=== PATIENT | female | born 1980 | race Caucasian/White ===

== ENCOUNTER 2021-10-31 18:18 | Emergency (ER) | payer OTHER, SELFPAY ==
--- NOTE | 2021-10-31 18:23 | ED.GENADULT ---
HPI - General Adult General Chief complaint: Nausea/Vomiting/Diarrhea Stated complaint: DIARRHEA/CHILLS Time Seen by Provider: 10/31/21 18:39 Source: patient and RN notes reviewed Mode of arrival: ambulatory Limitations: no limitations History of Present Illness HPI narrative: 41-year-old female presents with concern for 6 diarrhea stools and chills that started overnight. She reports exposure to influenza A at work. She reports she has recently had a gastric sleeve. She denies vomiting, sweats, fever, upper respiratory symptoms. She has been vaccinated for Covid. complaint: Diarrhea Related Data Home Medications Medication Instructions Recorded Confirmed bupropion HCl 10/31/21 lisinopril 10/31/21 metoprolol succinate 10/31/21 Allergies Allergy/AdvReac Type Severity Reaction Status Date / Time No Known Allergies Allergy Verified 10/31/21 18:29 Review of Systems Review of Systems: CONSTITUTIONAL: Denies malaise, sweats, or fever. Reports chills EYES: Denies visual changes, redness, or discharge. ENT: Denies rhinorrhea, congestion, sinus pain, otalgia or sore throat. CARDIOVASCULAR: Denies chest pain, palpitations, or edema. RESPIRATORY: Denies cough or dyspnea. GASTROINTESTINAL: Denies abdominal pain, nausea, vomiting,. Reports diarrhea GENITOURINARY: Denies dysuria or hematuria. SKIN: Denies rash or itching. MUSCULOSKELETAL: Denies back pain, joint pain, or myalgia. NEUROLOGIC: Denies numbness, weakness, or headache. PSYCHIATRIC: Denies anxiety or depression. All systems reviewed & are unremarkable except as noted in HPI and below PMFSH Comments At time of signature, agree with nursing past medical, surgical, social and family history. There is no relevant family history pertinent to the presenting complaint Exam Narrative: GENERAL: Well-appearing, well-nourished, and in no acute distress. HEAD: Normocephalic, atraumatic. EYES: PERRLA, sclera clear ENT: Nares clear. Mucous membranes moist NECK: Supple. CHEST: No respiratory distress. Clear to auscultation. No bony deformities, no asymmetry. Speaks in full sentences. HEART: Regular rate and rhythm. ABDOMEN: Soft, nontender, obese, normal active bowel sounds, no palpable masses. EXTREMITIES: Normal range of motion. SKIN: Warm, dry, no visible rash. NEURO: Alert and oriented x3. PSYCH: Normal mood and affect Course Course Emergency Course: Patient is aware of diagnosis, understands and agrees to treatment plan. Anticipatory guidance given. Patient agrees to follow-up as directed and is aware of reasons to seek care at the emergency department. Portions of this record may have been created with voice recognition software Vital Signs Vital signs: Reviewed. Medical Decision Making MDM Narrative Medical decision making narrative: Differential diagnosis considered: Yap virus, strep pharyngitis, allergic rhinitis, upper respiratory tract infection, sinusitis, rhinosinusitis, nasopharyngitis. viral pharyngitis, otitis media, otitis externa, pneumonia, bronchitis, viral cough syndrome, viral syndrome, and influenza. Exam findings show no acute concerns or changes; patient is non-toxic appearing and is in no distress. Patient is appropriate for outpatient treatment and follow-up. Lab Data Lab results reviewed: Yes I reviewed the patient's lab results. Critical Care Time Critical Care Time Critical Care Time: No Discharge Plan Discharge Clinical Impression: Diarrhea Qualifiers: Diarrhea type: unspecified type Qualified Code(s): R19.7 - Diarrhea, unspecified Patient Disposition: Home, Self-Care Condition: Stable Instructions: Acute Diarrhea (ED) Additional Instructions: Stay hydrated. Take small sips of fluid containing electrolytes frequently. You should go to the hospital if you experience return of persistent diarrhea that does not resolve and does not allow you to tolerate any food or fluids, persistent fevers for greater than 2-3
[2021-10-31 18:25] VITALS: BP 138/96; PULSE 93; RESP 16; TEMP 36.4; O2SAT 99
== END 2021-10-31 18:53 | disposition home or self-care (01) ==
PROVIDERS: Emergency Provider Nurse Practitioner; PCP Nurse Practitioner Family
DX: R19.7 Diarrhea, unspecified (principal)
CPT/HCPCS: 87804; 99213; G0463

== ENCOUNTER → 2022-01-10 13:31 | Outpatient (CLI) | payer OTHER, SELFPAY ==
--- NOTE | ~2022-01-10 | US_ITS ---
US axilla RT 01/10/2022 13:58 Indication: Palpable right axillary lump which is cut bigger over the past month. Patient has been on antibiotics for 2 weeks. Procedure: High-resolution Limited ultrasound of the right axilla in the area of palpable concern Comparison: No prior studies for comparison. Findings: In the area of palpable concern there is a superficially located oval hypoechoic mass measu ring 2.4 x 1.6 x 0.9 cm with parallel configuration, mixed posterior attenuation and peripheral vascu larity. No other masses are identified. Impression: 1: Irregular shaped hypoechoic mass located superficially in the area of palpable concern measuring u p to 2.4 cm maximum dimension. Considerations include complicated sebaceous cyst, abscess and less li silvina malignancy. Recommend initial evaluation with ultrasound-guided aspiration. If aspiration of flu id not possible, core biopsy recommended using ultrasound guidance. BI-RADS CATEGORY 4-SUSPICIOUS ABNORMALITY RECOMMENDATION: Ultrasound-guided aspiration/biopsy recommended. Reviewed, dictated and finalized at location A. TO CHIP SORTER Impression: 1: Irregular shaped hypoechoic mass located superficially in the area of palpab le concern measuring up to 2.4 cm maximum dimension. Considerations include com plicated sebaceous cyst, abscess and less likely malignancy. Recommend initial evaluation with ultrasound-guided aspiration. If aspiration of fluid not possib le, core biopsy recommended using ultrasound guidance. BI-RADS CATEGORY 4-SUSPICIOUS ABNORMALITY RECOMMENDATION: Ultrasound-guided aspiration/biopsy recommended.
== END ==
DX: D48.1 Neoplasm of uncertain behavior of connective and other soft tissue (principal)
CPT/HCPCS: 76882

== ENCOUNTER → 2022-04-04 12:47 | Outpatient (CLI) | payer OTHER, SELFPAY ==
--- NOTE | ~2022-04-04 | XR_ITS ---
EXAMINATION: XR hip RT 2V w AP pelvis DATE: 04/04/2022 13:19 INDICATION: Right hip pain TECHNIQUE: Anteroposterior view of the pelvis and anteroposterior and frog-leg lateral views of the r ight hip were obtained. COMPARISON: None. FINDINGS: Alignment is normal. No fracture or suspected avascular necrosis. Mild bilateral hip and sacroiliac o steoarthritis. Bone graft harvest site along the left iliac crest reportedly for prior childhood trau ma surgery. Soft tissues are unremarkable. IMPRESSION: 1. Mild bilateral hip and sacroiliac osteoarthritis. Reviewed, dictated and finalized at location B.
--- NOTE | ~2022-04-04 | MM_ITS ---
EXAMINATION: MM screening carlene BI w kaila HISTORY: Screening mammogram TECHNIQUE: Craniocaudal and mediolateral oblique 3-D tomosynthesis images were obtained and synthetic 2-D images were generated. CAD analysis was submitted and interpreted. COMPARISON: No prior mammogram is available for comparison at this institution. BREAST PARENCHYMAL COMPOSITION: The breasts are heterogeneously dense, which may obscure small masses . FINDINGS: Approximately 1.3 cm irregular circumscribed mass is noted in the mid left breast at mid de pth; diagnostic left mammogram and left breast ultrasound examination are recommended. Possible partially circumscribed mass is noted further laterally in the mid outer left breast. Altern atively, this may be dense fibroglandular stroma. Possible mass in posterior upper outer right breast. Diagnostic right mammogram and right breast ult rasound examination are recommended. IMPRESSION: 1. Bilateral breast masses are suggested 2. Bilateral diagnostic mammography and bilateral breast ultrasound examination are recommended BI-RADS Category 0: Incomplete: Needs additional imaging evaluation. Reviewed, dictated and finalized at location A.
== END ==
DX: Z12.31 Encounter for screening mammogram for malignant neoplasm of breast (principal); M25.551 Pain in right hip; M16.0 Bilateral primary osteoarthritis of hip; R92.8 Other abnormal and inconclusive findings on diagnostic imaging of breast
CPT/HCPCS: 73502; 77063; 77067

== ENCOUNTER → 2022-04-17 08:10 | Outpatient (CLI) | payer OTHER, SELFPAY ==
--- NOTE | ~2022-04-17 | MMUS_ITS ---
EXAMINATION: MM diagnostic carlene BI w kaila, US breast BI complete HISTORY: Bilateral breast masses TECHNIQUE: Additional 3-D tomosynthesis images of the breasts were performed and synthetic 2-D images were generated. CAD analysis was submitted and interpreted. High resolution bilateral complete breas t ultrasound was performed. COMPARISON: 04/04/2022 BREAST PARENCHYMAL COMPOSITION: The breasts are heterogenously dense, which may obscure small masses FINDINGS: MAMMOGRAPHIC FINDINGS: There are bilateral breast masses involving the upper outer quadrant of both breasts. There are no hagan spicious calcifications or architectural distortion. ULTRASOUND: Complete bilateral US of all 4 quadrants of the breasts and retroareolar region was reviewed. Right breast: At 7:00, 6 cm from the nipple there is a 4 mm cyst. At 10:00, 5 cm from the nipple ther e is a 7 mm cyst. This corresponds to the mammographic finding. Left breast: At 12:00, 1 cm from the nipple there is a 6 mm cyst. At 1:00 near the areola there is a 6 mm cyst. At 4:00, 3 cm from the nipple there is a 6 mm cyst. At 7:00, 5 cm from the nipple there is a 4 mm cyst. IMPRESSION: 1. No evidence for malignancy in either breast. Benign bilateral breast cysts. 2. Routine yearly screening mammogram and regular clinical breast examination are recommended. BI-RADS Category 2: Benign finding(s). Reviewed, dictated and finalized at location A. IMPRESSION: 1. No evidence for malignancy in either breast. Benign bilateral breast cysts. 2. Routine yearly screening mammogram and regular clinical breast examination a re recommended. BI-RADS Category 2: Benign finding(s).
== END ==
DX: R92.8 Other abnormal and inconclusive findings on diagnostic imaging of breast (principal)
CPT/HCPCS: 76641; 77062; 77066; G0279

== ENCOUNTER 2022-10-26 10:44 | Emergency (ER) | payer OTHER, SELFPAY ==
[2022-10-26 11:09] VITALS: BP 131/80; PULSE 78; RESP 18; TEMP 36.3; O2SAT 100
[2022-10-26 11:12] VITALS: BP 131/80; PULSE 78; RESP 18; TEMP 36.3; O2SAT 100
--- NOTE | 2022-10-26 11:45 | ED.GENADULT ---
HPI - General Adult General Chief complaint: Upper Respiratory Infection Stated complaint: clammy, fatigue, cov exposure Time Seen by Provider: 10/26/22 11:46 Source: patient, RN notes reviewed and old records reviewed Mode of arrival: ambulatory Limitations: no limitations History of Present Illness HPI narrative: 42-year-old female who presents to [facility] with complaints feeling clammy, extreme fatigue,sinus drainage and headache for a few days, has had positive exposures recently to COVID and Flu. 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 Patient is also suppose to have surgery for hysterectomy on the 20 of November for abnormal vaginal bleeding and thinks she may just have low hemoglobin which is making her feel bad. Patient reports that she had iron infusions in September, plans to contact MD for labs. MD complaint: fatigue, clammy feeling, covid exposure. Severity scale (1-10): 3 Related Data Home Medications Medication Instructions Recorded Confirmed alprazolam 0.5 mg tablet 0.5 mg PO DAILY 10/26/22 10/26/22 apixaban 5 mg tablet (Eliquis) 5 mg PO DAILY 10/26/22 10/26/22 bupropion HCl 150 mg 24 hr tablet, 150 mg PO DAILY 10/26/22 10/26/22 extended release ezetimibe 10 mg tablet 10 mg PO DAILY 10/26/22 10/26/22 levothyroxine 25 mcg tablet 25 mcg PO DAILY 10/26/22 10/26/22 lisinopril 10 mg tablet 10 mg PO DAILY 10/26/22 10/26/22 norgestimate 0.25 mg-ethinyl 1 tablet PO DAILY 10/26/22 10/26/22 estradiol 35 mcg tablet (Estarylla) nystatin 100,000 unit/gram topical 1 applic topical DIRECTED 10/26/22 10/26/22 powder (Nystop) Allergies Allergy/AdvReac Type Severity Reaction Status Date / Time No Known Allergies Allergy Verified 10/26/22 11:11 Review of Systems Review of Systems: CONSTITUTIONAL: Denies fever, chills, or sweats. EYES: Denies visual changes, redness, or discharge. ENT: Reports rhinorrhea, congestion,no sore throat, or otalgia. CARDIOVASCULAR: Denies chest pain, palpitations, or edema. RESPIRATORY: Denies cough or dyspnea. GASTROINTESTINAL: Denies abdominal pain, nausea, vomiting, or diarrhea. GENITOURINARY: Denies dysuria or hematuria. SKIN: Denies rash or itching. MUSCULOSKELETAL: Denies back pain, joint pain, or myalgia. NEUROLOGIC: Reports headache,no numbness, positive for generalized weakness and fatigue PSYCHIATRIC: Positive for history of anxiety or depression. All systems reviewed & are unremarkable except as noted in HPI and below PMFSH Past Medical History Medical History (Updated 10/27/22 @ 09:08 by Shazia Chavarria NP) Anemia Anxiety and depression Hypertension Surgical History Surgical History (Updated 10/27/22 @ 08:52 by Shazia Chavarria NP) H/O gastric sleeve Social History Social History (Updated 10/27/22 @ 08:53 by Shazia Chavarria NP) Smoking status: Never smoker Alcohol intake: unknown Substance use: never Gender identity (if verbalized by the patient): Female Comments At time of signature, agree with nursing past medical, surgical, social and family history. There is no relevant family history pertinent to the presenting complaint Exam Narrative: GENERAL: Well-appearing, well-nourished, and in no acute distress. HEAD: Normocephalic, atraumatic. EYES: PERRLA and EOMI. ENT: Nares clear, clear rhinorrhea or epistaxis. Mucous membranes moist.TM's normal with good light reflex, throat pink with no lesions or exudates or swelling NECK: Supple. no lymphadenopathy CHEST: Clear to auscultation. No respiratory distress. HEART: Regular rate and rhythm. No murmur heard. Normal peripheral pulses. ABDOMEN: Soft, nontender, nondistended, normal active bowel sounds. EXTREMITIES: Normal range of motion. No edema. SKIN: Warm, dry, no rash. NEURO: No focal deficits. Alert and oriented x3. Course Course Emergency Course: Patient is aware of diagnosis, understands and agrees t
== END 2022-10-26 11:58 | disposition home or self-care (01) ==
PROVIDERS: Emergency Provider Registered Nurse; PCP Nurse Practitioner Family
DX: B34.9 Viral infection, unspecified (principal); Z20.822 Contact with and (suspected) exposure to COVID-19; I10 Essential (primary) hypertension; F41.9 Anxiety disorder, unspecified; F32.A Depression, unspecified
CPT/HCPCS: 87426; 87804; 99213; C9803; G0463

== ENCOUNTER 2023-02-19 15:26 | Emergency (ER) | payer OTHER, SELFPAY ==
[2023-02-19 15:36] VITALS: BP 137/94; PULSE 72; RESP 16; TEMP 36.3; O2SAT 100
--- NOTE | 2023-02-19 16:08 | ED.URI ---
HPI - URI/Sore Throat General Chief Complaint: Upper Respiratory Infection Stated Complaint: EARACHE/SINUS CONGESTION Time Seen by Provider: 02/19/23 16:09 Source: patient and RN notes reviewed Mode of arrival: ambulatory Limitations: no limitations History of Present Illness HPI Narrative: 43-year-old female presents with concern for sinus congestion and earache, headache that started yesterday. Reports she did a COVID test at home that was negative. 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 She denies fever, aches, chills sweats MD elicited complaint: cough and sore throat Related Data Home Medications Medication Instructions Recorded Confirmed alprazolam 0.5 mg tablet 0.5 mg PO DAILY 10/26/22 02/19/23 bupropion HCl 150 mg 24 hr tablet, 150 mg PO DAILY 10/26/22 02/19/23 extended release ezetimibe 10 mg tablet 10 mg PO DAILY 10/26/22 02/19/23 levothyroxine 25 mcg tablet 25 mcg PO DAILY 10/26/22 02/19/23 lisinopril 10 mg tablet 10 mg PO DAILY 10/26/22 02/19/23 norgestimate 0.25 mg-ethinyl 1 tablet PO DAILY 10/26/22 02/19/23 estradiol 35 mcg tablet (Estarylla) Allergies Allergy/AdvReac Type Severity Reaction Status Date / Time No Known Allergies Allergy Verified 02/19/23 15:31 Review of Systems Review of Systems: CONSTITUTIONAL: Denies malaise, chills, sweats, or fever. EYES: Denies visual changes, redness, or discharge. ENT: Reports rhinorrhea, congestion, otalgia and sore throat. CARDIOVASCULAR: Denies chest pain, palpitations, or edema. RESPIRATORY: Denies cough. Denies dyspnea. GASTROINTESTINAL: Denies abdominal pain, nausea, vomiting, diarrhea SKIN: Denies rash or itching. MUSCULOSKELETAL: Denies myalgia. NEUROLOGIC: Reports headache. All systems reviewed & are unremarkable except as noted in HPI and below PMFSH Past Medical History Medical History (Updated 02/19/23 @ 16:32 by Ninfa Dickson NP) Anemia Anxiety and depression Hypertension Surgical History Surgical History (Updated 10/27/22 @ 08:52 by Shazia Chavarria NP) H/O gastric sleeve Social History Social History (Updated 10/27/22 @ 08:53 by Shazia Chavarria NP) Smoking status: Never smoker Alcohol intake: unknown Substance use: never Gender identity (if verbalized by the patient): Female Comments At time of signature, agree with nursing past medical, surgical, social and family history. There is no relevant family history pertinent to the presenting complaint Exam Narrative: GENERAL: Well-appearing, well-nourished, and in no acute distress. HEAD: Normocephalic EYES: PERRLA, conjunctivae clear ENT: Nares clear, turbinates edematous and erythematous, clear discharge. Mucous membranes moist. TM pearly reynoso with dull light reflex bilaterally; no tragal tenderness. Oropharynx not erythematous without lesions. Tonsils not enlarged and without exudate, no drooling, no hoarseness, no trismus, uvula midline. NECK: Supple. No lymphadenopathy CHEST: Clear to auscultation, breath sounds equal. No wheezing, rhonchi, rales, or stridor. No respiratory distress, speaks in full sentences. HEART: Regular rate and rhythm. No murmur heard. SKIN: Warm, dry, no rash. NEURO: Alert and oriented x3. PSYCH: Normal mood and affect Course Course Emergency Course: Patient is aware of diagnosis, understands and agrees to treatment plan. Anticipatory guidance given. Patient agrees to follow-up as directed and is aware of reasons to seek care at the emergency department. Portions of this record may have been created with voice recognition software Level of Care: Express Care Visit Vital Signs Vital signs: Vital Signs Temperature 97.4 F L 02/19/23 15:36 Pulse Rate 72 02/19/23 15:36 Respiratory Rate 16 02/19/23 15:36 Blood Pressure 137/94 H 02/19/23 15:36 Pulse Oximetry 100 02/19/23 15:36 Temperature 97.4 F L 02/19/23 15:36 Pulse Rate 72 02/19/23 15:36 Respiratory Rate 16 02/19/23 15:36 Blood Pressure 137/94
== END 2023-02-19 16:32 | disposition home or self-care (01) ==
PROVIDERS: Emergency Provider Nurse Practitioner; PCP Nurse Practitioner Family
DX: J10.1 Influenza due to other identified influenza virus with other respiratory manifestations (principal); I10 Essential (primary) hypertension; F41.9 Anxiety disorder, unspecified; F32.A Depression, unspecified
CPT/HCPCS: 87081; 87804; 87880; 99213; G0463